=== PATIENT | male | born 1985 | race Caucasian/White ===

== ENCOUNTER 2016-10-14 20:35 | Emergency (ER) | payer SELFPAY | END 2016-10-14 22:50 | disposition home or self-care (01) | LOC: D.ER 20:35 | DX: S93.401A Sprain of unspecified ligament of right ankle, initial encounter (principal); V29.3XXA Motorcycle rider (driver) (passenger) injured in unspecified nontraffic accident, initial encounter; S80.11XA Contusion of right lower leg, initial encounter; M54.6 Pain in thoracic spine ==

== ENCOUNTER → 2017-08-21 10:02 | Outpatient (CLI) | payer BC ==
--- NOTE | ~2017-08-21 | EC ---
PATIENT:NICOLÁS BRAR DATE OF SERVICE: 08/21/17 SEX: M MEDICAL RECORD: [id number] DATE OF : [birth year] LOCATION[facility] AGE OF PATIENT: 32 ADMISSION DATE: 08/21/17 REFERRING PHYSICIAN: INTERPRETING PHYSICIAN: WES RODGERS MD ECHOCARDIOGRAM REPORT ECHO CHARGES 4 ECHO COMPLETE Date: 08/21 CLINICAL DIAGNOSIS: HTN,CHEST PAIN,CARDIAC ARRHYTHMIA, HX OF DRUG USE ECHOCARDIOGRAPHIC MEASUREMENTS (adult normal given) AC root (d.<3.7cm) 3.7 cm LV Septum d (<1.2 cm> 1.2 cm Valve Excursion 2.2 cm LV Septum (systole) 1.4 cm Left Atria (s.<4.0cm> 3.7 cm LVPW d(<1.2cm) 12 cm RV (d.<2.3cm) 3.9 cm LVPW (sytole) 1.8 cm LV diastole(<5.6CM) 5.4 cm MV E-F(>70mm/sec) cm LV systole 3.7 cm LVOT Diameter 2.1 cm MV exc.(>10mm) 2.8 cm Est.ejection fraction (50-75%) % DOPPLER: LVIT cm/sec A 54.0 cm/sec E 69.0 cm/sec LA cm/sec RVSP 31 mmHg LVOT 117 cm/sec AOP1/2T m/s Asc. Ao 146 cm/sec RVOT 50 cm/sec RA cm/sec PA 128 cm/sec AV Gradient Peak 8.49 mmHg AV Mean 5.11 mmHg AV Area 2.9 cm MV Gradient Peak 3.95 mmHg MV Mean 1.47 mmHg MV Area cm COMMENTS: Hospice Registered Nurse: 2 MED [facility] [employer]: 4 Dr. Rodgers TAPE# PACS Pericardial Effusion N DATE OF SERVICE: PROCEDURE: Transthoracic echocardiogram. FINDINGS: 1. Left ventricle is normal size. There is mild left ventricular hypertrophy. Ejection fraction is 55%. There is no obvious regional wall motion abnormalities. 2. The tricuspid valve is normal structure with normal function. RVSP was normal. ECHOCARDIOGRAM REPORT [id number] NICOLÁS BRAR 3. The aortic valve is trileaflet and normal. 4. The left atrium appears to be normal size, normal shape, normal function. 5. Inflow characteristics are normal. 6. The right ventricle is normal. 7. The right atrium is normal. 8. The pulmonic valve is normal. 9. There is no pericardial effusion. CONCLUSION: This is a normal echocardiogram for patient stated age. TRANSINT:[id number] Voice Confirmation ID: [id number] DOCUMENT ID: [id number] WES RODGERS MD at 0741 CC: [id number] DICTATION DATE: 08/31/17 1043 ALUMINUM SIDING APPLICATOR: 08/31/17 1219 DEP CLI 08/21/17 [id number] [place] [address]
== END | disposition home or self-care (01) ==
LOC: D.ECHO 10:02
DX: I10 Essential (primary) hypertension (principal); R07.9 Chest pain, unspecified; I49.9 Cardiac arrhythmia, unspecified; F19.21 Other psychoactive substance dependence, in remission

== ENCOUNTER 2017-10-28 09:34 | Emergency (ER) | payer MEDICAID ==
[~2017-10-28] VITALS: Ht 170.2 cm; Wt 81.8 kg
[2017-10-28 09:41] VITALS: Ht 170.2 cm; Wt 81.8 kg
[2017-10-28] MEDS ORDERED: ASPIRIN81 MG PO (09:42)
[2017-10-28] MEDS ORDERED: LEXAPRO10 MG PO (09:42)
[2017-10-28] MEDS ORDERED: LAMISIL250 MG PO (10:44)
[2017-10-28] MEDS ORDERED: CLEOCIN HCL300 MG PO (10:44)
[2017-10-28] MEDS ORDERED: ULTRAM50 MG PO (10:46)
[2017-10-28 11:53] VITALS: BP 148/82
== END 2017-10-28 11:22 | disposition home or self-care (01) ==
LOC: D.ER 09:34
DX: B35.0 Tinea barbae and tinea capitis (principal); F17.200 Nicotine dependence, unspecified, uncomplicated

== ENCOUNTER → 2018-01-05 08:14 | Outpatient (CLI) | payer MEDICAID ==
[2017-10-28 09:41] VITALS: BMI 28.2
[~2018-01-05 08:14] MED LIST: ASPIRIN81 MG PO; CLEOCIN HCL300 MG PO; LAMISIL250 MG PO; LEXAPRO10 MG PO; ULTRAM50 MG PO
== END | disposition home or self-care (01) ==
LOC: D.MRI 07:30
DX: M47.812 Spondylosis without myelopathy or radiculopathy, cervical region (principal)